=== PATIENT | male | born 1980 | race Caucasian/White ===

== ENCOUNTER 2017-08-08 11:23 | Emergency (ER) | payer OTHER ==
[~2017-08-08] VITALS: Ht 198.1 cm; Wt 10.9 kg
[2017-08-08 11:25] VITALS: BP 130/70; PULSE 62; RESP 16; TEMP 98.2; O2SAT 98
[2017-08-08] MEDS ORDERED: ONDANSETRON HCL 4 MG/2 ML VIAL IV PUSH ONE (11:45)
[2017-08-08] MEDS ORDERED: MORPHINE SULFATE 4 MG/ML INJ IV PUSH ONE (11:45)
[2017-08-08] MEDS ORDERED: LIDOCAINE HCL 1% 50 ML VIAL INFIL ONE (11:45)
[2017-08-08 11:59] LABS: AUTOMATED NEUTROPHIL # 5.6 TH/MM3 (1.8-7.7); BASOPHIL % 0.5 % (0.0-2.0); EOSINOPHIL # 0.1 TH/MM3 (0-0.4); EOSINOPHIL % 1.1 % (0.0-4.0); HEMATOCRIT 41.4 % (39.0-51.0); HEMO FLAGS DIFF FINAL; LYMPH % 26.4 % (9.0-44.0); LYMPHOCYTE # 2.2 TH/MM3 (1.0-4.8); MEAN CORPUSCULAR HEMOGLOBIN 30.1 PG (27.0-34.0); MEAN CORPUSCULAR HGB CONC 34.2 % (32.0-36.0); MONO % 5.4 % (0.0-8.0); NEUT % 66.6 % (16.0-70.0); PLATELET COUNT 157 TH/MM3 (150-450); RED BLOOD COUNT 4.71 MIL/MM3 (4.50-5.90); RED CELL DISTRIBUTION WIDTH 13.3 % (11.6-17.2); WHITE BLOOD COUNT 8.4 TH/MM3 (4.0-11.0)
[2017-08-08 12:15] LABS: BICARBONATE 24.4 MEQ/L (21.0-32.0); POTASSIUM 4.5 MEQ/L (3.5-5.1)
--- NOTE | 2017-08-08 12:20 | RADRPT ---
EXAM DATE/TIME: 08/08/2017 11:54 [place] COMPARISON: No previous studies available for comparison. INDICATIONS : Pain, laceration left thumb, caught in spring for large doot MEDICAL HISTORY : None. SURGICAL HISTORY : None. ENCOUNTER: Initial ACUITY: 1 day PAIN SCORE: 10/10 LOCATION: Left Thumb FINDINGS: 3 views of the right hand first digit demonstrate no fracture or dislocation. There is soft tissue ir regularity at the reported site of laceration along the lateral aspect of the proximal thumb directly adjacent to the metacarpophalangeal joint. No radiopaque foreign body is identified. Remaining right hand structures demonstrate no acute finding. CONCLUSION: Soft tissue injury/laceration at the proximal aspect of the thumb and directly adjacent to the metaca rpophalangeal joint. No radiopaque foreign body is visualized and no fracture is present. Bassem Michel MD on August 08, 2017 at 12:17 Board Certified Radiologist. This report was verified electronically.
[2017-08-08] MEDS ORDERED: BUPIVACAINE HCL PF 0.5% 10 ML VIAL NERV BLOCK ONE (12:30)
--- NOTE | 2017-08-08 14:23 | PD ---
HPI Chief Complaint: Laceration/Skin Injury Time Seen by Provider: 11:38 Travel History International Travel<30 days: No Contact w/Intl Traveler<30days: No Traveled to known affect area: No History of Present Illness HPI 37-year-old male that presents to the ED for evaluation of laceration to his right first digit. Patient states that he was working on a garage door when the spring from the garage door on [place] and hit him on the right first digit about per patient 20 times. Per patient he has a deep laceration he has difficulty moving the finger secondary to pain as well as possible tendon laceration. Bone is not visible. There appears to be a tendon injury as well. Patient cannot fully abduct the finger. He denies any numbness, tilling, weakness. No other injury. He states been up-to-date with tetanus. He said able to extend it to a certain degree but cannot do it fully especially on the DIP. States that his pain is 8 out of 10 and gets worse when moving but able to do so. States having minimal bleeding. No other medical issues. This was a worker's comp. [facility] Past Medical History Medical History: Denies Significant Hx Social History Alcohol Use: No Tobacco Use: No Substance Use: No Allergies-Medications (Allergen,Severity, Reaction): Coded Allergies: No Known Allergies (Unverified , 08/08/17) Reported Meds & Prescriptions Reported Meds & Active Scripts Active Keflex (Cephalexin) 500 Mg Cap 500 Mg PO Q8H 5 Days Ibuprofen 800 Mg Tab 800 Mg PO Q8H PRN Hydrocodone-Acetamin 5-325 mg (Hydrocodone/Acetaminophen) 5 Mg-325 Mg Tablet 1 Tab PO Q6HR PRN Review of Systems Except as stated in HPI: all other systems reviewed are Neg Physical Exam Narrative GENERAL: SKIN: Warm and dry. HEAD: Atraumatic. Normocephalic. EYES: Pupils equal and round. No scleral icterus. No injection or drainage. ENT: No nasal bleeding or discharge. Mucous membranes pink and moist. NECK: Trachea midline. No JVD. CARDIOVASCULAR: Regular rate and rhythm. RESPIRATORY: No accessory muscle use. Clear to auscultation. Breath sounds equal bilaterally. GASTROINTESTINAL: Abdomen soft, non-tender, nondistended. Hepatic and splenic margins not palpable. MUSCULOSKELETAL: Extremities without clubbing, cyanosis, or edema. No obvious deformities. Full range of motion of all fingers with exception of the right thumb. Patient has a laceration which is about 3.5 cm on the dorsal aspect of the right MIP area of the right first digit. Patient able to extend it but the tendon does appear to be injured. NEUROLOGICAL: Awake and alert. No obvious cranial nerve deficits. Motor grossly within normal limits. Five out of 5 muscle strength in the arms and legs. Normal speech. PSYCHIATRIC: Appropriate mood and affect; insight and judgment normal. Data Data Last Documented VS Vital Signs Date Time Temp Pulse Resp B/P (MAP) Pulse Ox O2 Delivery O2 Flow Rate FiO2 08/08/17 11:25 98.2 62 16 130/70 (90) 98 Orders Orders Basic Metabolic Panel (Bmp) (08/08/17 11:40) Complete Blood Count With Diff (08/08/17 11:40) Iv Access Insert/Monitor (08/08/17 11:40) Wound Care (08/08/17 11:40) Cefazolin Inj (Ancef Inj) (08/08/17 11:45) Lidocaine 1% Inj (50 Ml) (Xylocaine 1% I (08/08/17 11:45) Finger ([id number]) (08/08/17 11:40) Morphine Inj (Morphine Inj) (08/08/17 11:45) Ondansetron Inj (Zofran Inj) (08/08/17 11:45) Bupivacaine Pf 0.5% Inj (Marcaine Pf 0.5 (08/08/17 12:30) Labs Laboratory Tests Test 08/08/17 11:46 White Blood Count 8.4 TH/MM3 Red Blood Count 4.71 MIL/MM3 Hemoglobin 14.1 GM/DL Hematocrit 41.4 % Mean Corpuscular Volume 88.0 FL Mean Corpuscular Hemoglobin 30.1 PG Mean Corpuscular Hemoglobin Concent 34.2 % Red Cell Distribution Width 13.3 % Platelet Count 157 TH/MM3 Mean Platelet Volume 8.8 FL Neutrophils (%) (Auto) 66.6 % Lymphocytes (%) (Auto) 26.4 % Monocytes (%) (Auto) 5.4 % Eosinophils (%) (Auto) 1.1 % Basophils (%) (Auto) 0.5 % Neutrophils # (Auto) 5.6 TH/MM3 Lymphocytes # (Auto) 2.2 TH/MM3 Monocytes # (Auto) 0.5 TH/MM3 Eosinophils # (Auto) 0.1 TH/MM3 Basophils # (Auto) 0.0 TH/MM3 CBC Comment DIFF FINAL Differential Comment Blood Urea Nitrogen 17 MG/DL Creatinine 0.91 MG/DL Random Glucose 121 MG/DL Calcium Level 9.0 MG/DL Sodium Level 137 MEQ/L Potassium Level 4.5 MEQ/L Chloride Level 106 MEQ/L Carbon Dioxide Level 24.4 MEQ/L Anion Gap 7 MEQ/L Estimat Glomerular Filtration Rate 94 ML/MIN MDM Medical Decision Making Medical Screen Exam Complete: Yes Emergency Medical Condition: Yes Medical Record Reviewed: Yes Interpretation(s) Last Impressions Finger X-Ray 08/08/17 1140 Signed Impressions: Service Date/Time: , August 08, 2017 11:54 - CONCLUSION: Soft tissue injury/laceration at the proximal aspect of the thumb and directly adjacent to the metacarpophalangeal joint. No radiopaque foreign body is visualized and no fracture is present. Bassem Michel MD CBC & BMP Diagram 08/08/17 11:46 Calcium Level 9.0 Differential Diagnosis Tendon laceration versus joint injury versus laceration versus normal exam Narrative Course 37-year-old male that presents to the ED for evaluation of laceration to the right first digit. Patient was properly examined and was found to have signs and symptoms concerning for laceration to the tendon and possible bony injury. X-rays and labs were ordered. X-rays show no sign of bony injury. This was discussed with Dr. Ruiz who is on-call for hand surgery who will come here and evaluated the patient and fix the laceration. This was discussed with the patient and agrees with plan. Patient was given IV dose of antibiotics. Dr. Ruiz fix the laceration with minimal discomfort for the patient. Patient tolerated procedure well. Dr. Ruiz wants the patient to not use his hand for at least 6 weeks. Patient is to follow-up with Dr. Ruiz's office. Patient will be started on pain medication as well as splint placed. Splint was placed to Dr. Ruiz himself. Patient was given Keflex and ibuprofen and hydrocodone. Told to follow up with Dr. Ruiz. Given note for work. See ED worsening symptoms. Diagnosis Primary Impression: Laceration of right thumb Qualified Codes: S61.111A - Laceration without foreign body of right thumb with damage to nail, initial encounter Referrals: Camryn Ruiz MD Patient Instructions: General Instructions, Narcotic given in the ED Additional Instructions: Take medications as prescribed. Follow-up with Dr Ruiz See ED for any worsening symptoms. Do not drink or drive while taking pain medication. Apply ice as needed for pain Med/Other Pt SpecificInfo: Prescription(s) given Scripts Cephalexin (Keflex) 500 Mg Cap 500 MG PO Q8H for Infection for 5 Days, #15 CAP 0 Refills Prov: Justo Celeste MD 08/08/17 Ibuprofen (Ibuprofen) 800 Mg Tab 800 MG PO Q8H Y for PAIN SCALE 1 TO 10, #30 TAB 0 Refills Prov: Justo Celeste MD 08/08/17 Hydrocodone/Acetaminophen (Hydrocodone-Acetamin 5-325 mg) 5 Mg-325 Mg Tablet 1 TAB PO Q6HR Y for PAIN SCALE 1 TO 10, #14 Prov: Justo Celeste MD 08/08/17 Disposition: 01 DISCHARGE HOME Condition: Stable Abdulaziz Sneed Aug 08, 2017 14:23
[2017-08-08] MEDS ORDERED: CEPH-460 PO (15:20)
[2017-08-08] MEDS ORDERED: HYDR-3516 PO (15:20)
[2017-08-08] MEDS ORDERED: IBUP1TAB7 PO (15:20)
[2017-08-08 15:56] VITALS: BP 132/71
--- NOTE | 2017-08-08 16:04 | PD ---
Physical Exam Date Seen by Provider: Aug 08, 2017 Time Seen by Provider: 13:00 Narrative I, Dr. Celeste, have reviewed the advance practice practitioner's documentation and am in agreement, met with the patient face to face, made the diagnosis, and the medical decision making was done by me. *My assessment and Findings: Patient seen and evaluated with PA, please see PA note for further details. Patient was injured by a spring on the garage door, has an irregular laceration to the right base of the thumb, with decreased ability to flex and extend the thumb, concerning for underlying tenderness injuries. Dr. Ruiz was called to evaluate the case especially considering this injury. Laboratory Tests Test 08/08/17 11:46 Random Glucose 121 MG/DL (74-106) Last 24 hours Impressions Finger X-Ray 08/08/17 1140 Signed Impressions: Service Date/Time: July 11:54 - CONCLUSION: Soft tissue injury/laceration at the proximal aspect of the thumb and directly adjacent to the metacarpophalangeal joint. No radiopaque foreign body is visualized and no fracture is present. MD Dr. Sara Saleem arrived in the ER, was able to assess the injury, suture laceration , and plans for follow-up. Wound care instructions given. Patient released. Return for any signs of infection or new symptoms as needed. Data Data Last Documented VS Vital Signs Date Time Temp Pulse Resp B/P (MAP) Pulse Ox O2 Delivery O2 Flow Rate FiO2 08/08/17 15:56 75 16 132/71 (91) 100 08/08/17 11:25 98.2 Orders Orders Basic Metabolic Panel (Bmp) (08/08/17 11:40) Complete Blood Count With Diff (08/08/17 11:40) Iv Access Insert/Monitor (08/08/17 11:40) Wound Care (08/08/17 11:40) Cefazolin Inj (Ancef Inj) (08/08/17 11:45) Lidocaine 1% Inj (50 Ml) (Xylocaine 1% I (08/08/17 11:45) Finger ([id number]) (08/08/17 11:40) Morphine Inj (Morphine Inj) (08/08/17 11:45) Ondansetron Inj (Zofran Inj) (08/08/17 11:45) Bupivacaine Pf 0.5% Inj (Marcaine Pf 0.5 (08/08/17 12:30) Ed Discharge Order (08/08/17 15:29) Fiberglass Splint Forearm Adul (08/08/17 ) Labs Laboratory Tests Test 08/08/17 11:46 White Blood Count 8.4 TH/MM3 Red Blood Count 4.71 MIL/MM3 Hemoglobin 14.1 GM/DL Hematocrit 41.4 % Mean Corpuscular Volume 88.0 FL Mean Corpuscular Hemoglobin 30.1 PG Mean Corpuscular Hemoglobin Concent 34.2 % Red Cell Distribution Width 13.3 % Platelet Count 157 TH/MM3 Mean Platelet Volume 8.8 FL Neutrophils (%) (Auto) 66.6 % Lymphocytes (%) (Auto) 26.4 % Monocytes (%) (Auto) 5.4 % Eosinophils (%) (Auto) 1.1 % Basophils (%) (Auto) 0.5 % Neutrophils # (Auto) 5.6 TH/MM3 Lymphocytes # (Auto) 2.2 TH/MM3 Monocytes # (Auto) 0.5 TH/MM3 Eosinophils # (Auto) 0.1 TH/MM3 Basophils # (Auto) 0.0 TH/MM3 CBC Comment DIFF FINAL Differential Comment Blood Urea Nitrogen 17 MG/DL Creatinine 0.91 MG/DL Random Glucose 121 MG/DL Calcium Level 9.0 MG/DL Sodium Level 137 MEQ/L Potassium Level 4.5 MEQ/L Chloride Level 106 MEQ/L Carbon Dioxide Level 24.4 MEQ/L Anion Gap 7 MEQ/L Estimat Glomerular Filtration Rate 94 ML/MIN [facility] Medical Record Reviewed: Yes Supervised Visit with ARMEN: Yes Diagnosis Primary Impression: Laceration of right thumb Qualified Codes: S61.111A - Laceration without foreign body of right thumb with damage to nail, initial encounter Referrals: Camryn Ruiz MD Patient Instructions: General Instructions, Narcotic given in the ED Departure Forms: Tests/Procedures Additional Instruction: Take medications as prescribed. Follow-up with Dr Ruiz See ED for any worsening symptoms. Do not drink or drive while taking pain medication. Apply ice as needed for pain Scripts Cephalexin (Keflex) 500 Mg Cap 500 MG PO Q8H for Infection for 5 Days, #15 CAP 0 Refills Prov: Justo Celeste MD 08/08/17 Ibuprofen (Ibuprofen) 800 Mg Tab 800 MG PO Q8H Y for PAIN SCALE 1 TO 10, #30 TAB 0 Refills Prov: Justo Celeste MD 08/08/17 Hydrocodone/Acetaminophen (Hydrocodone-Acetamin 5-325 mg) 5 Mg-325 Mg Tablet 1 TAB PO Q6HR Y for PAIN SCALE 1 TO 10, #14 Prov: Justo Celeste MD 08/08/17 Disposition: 01 DISCHARGE HOME Condition: Stable Justo Celeste MD Aug 08, 2017 16:04
--- NOTE | 2017-08-29 10:00 | MB ---
cc: MENDEZ GIPSON M.D. DATE OF CONSULTATION 08/08/2017 REQUESTING PHYSICIAN The patient is being seen at the request of Dr. Justo Celeste. REASON FOR CONSULTATION Injury to the right thumb. HISTORY OF PRESENT ILLNESS The patient is a 37-year-old male who was working on a garage door when a spring from the garage door broke. It was a spring that unraveled and as it unraveled it hit him on the dorsal aspect and part of the palmar aspect of his right thumb. The patient sustained an injury to the soft tissue on the palmar surface as well as dorsally. Consultation is requested regarding evaluation and treatment of this injury. PAST MEDICAL HISTORY The patient is otherwise well. ALLERGIES None known. MEDICATIONS Negative. REVIEW OF SYSTEMS The patient denies high blood pressure, diabetes, heart disease, kidney disease, liver disease or diseases of infectious etiology. Review of systems is negative except as related to the injury. SOCIAL HISTORY The patient denies smoking or using alcohol. PHYSICAL EXAMINATION GENERAL: On examination the patient is lying comfortably on the stretcher. HEENT: His extraocular muscles are intact. His pupils are equal round and reactive to light. His mouth is clear. NECK: Supple without masses. LUNGS: Clear. HEART: Regular rate and rhythm. EXTREMITIES: Examination of his upper extremities reveals an open laceration to the dorsal aspect of his right thumb. The extensor tendon is exposed is partially lacerated in a longitudinal fashion between the MP and PIP joints. Although the patient does have adequate extension, there is division of the fibers between the slips of the extensor tendons which rendered them unstable. The length of the laceration is total 3.5 cm. There is a 1-cm laceration on the palmar surface of the thumb in the pulp but his two-point discrimination is within normal limits. IMAGING STUDIES X-rays of his right thumb were reviewed and there is no evidence of a fracture. The soft tissue injury is noted. IMPRESSION The patient has a laceration of the dorsal aspect of his right thumb as well as on the palmar surface with injury to the tendon. PLAN Repair. The patient understands and accepts the risks and complications of the surgery. The surgery will be performed in the emergency room. MD EMANI Melnedez/DYLAN /9:31 AM /9:48 AM
--- NOTE | 2017-08-29 10:50 | MP ---
cc: MENDEZ GIPSON M.D. DATE OF SURGERY 08/08/2017 PREOPERATIVE DIAGNOSIS Open wound of the right thumb with injury to the tendon and soft tissue. POSTOPERATIVE DIAGNOSIS Open wound of the right thumb with injury to the tendon and soft tissue. PROCEDURE 1. Complex repair of 3.5 cm open laceration to the right thumb. 2. Repair of the extensor tendon to the right thumb. ANESTHESIA Local SURGEON Dr. Mendez Gipson INDICATIONS This is a 37-year-old male with injury from a garage door spring to his right thumb. FINDINGS The extensor tendon was injured and there were soft tissue injuries which were quite extensive. At the completion of the procedure, the wound had been closed and the tendon repaired. OPERATIVE TIME 45 minutes PROCEDURE The patient was seen in the emergency room where the operation was performed. He was in a supine position. His right hand was prepped with Betadine and draped in the usual sterile fashion. Bupivacaine 0.5% plain was used to anesthetize the whole area. Once the thumb was numb, it was copiously irrigated with saline. The edges of the wound were debrided sharply of devitalized tissue. There were several flaps which did need debridement. The wounds were irrigated and then the tendon was repaired by using 4-0 Mersilene suture material in an interrupted fashion. The tendons were lacerated on either side of the central part of the extensor apparatus that had from the lateral surfaces. Once the tendon was repaired, the wound was closed with interrupted 5-0 nylon to both the palmar surface and the dorsal surface. Once all the wounds were closed, the area was cleansed of Betadine and blood, dressed with povidone-iodine ointment, Adaptic, Telfa, 4x4s, hand wrap and a thumb spica splint. The patient was then given back to the care of the ER staff for disposition. He is to follow up in my office next week. MD EMANI Melendez/SMITHA /9:36 AM /10:43 AM [facility]LU
== END 2017-08-08 16:06 | disposition home or self-care (01) ==
LOC: NEPE 11:23
DX: S61.111A Laceration without foreign body of right thumb with damage to nail, initial encounter (principal); W31.9XXA Contact with unspecified machinery, initial encounter
CPT/HCPCS: 13131; 26410; 73140; 80048; 85025; 96365; 96366; 96375; 99284; J0690; J2270; J2405